=== PATIENT | male | born 1955 | race Caucasian/White ===

== ENCOUNTER 2024-05-07 08:22 | Day surgery (SDC) | payer MEDICARE, OTHER ==
[~2024-05-07] VITALS: Ht 162.6 cm; Wt 80.5 kg
[~2024-05-07 08:22] MED LIST: ASPI-1450 PO; ATOR40TA28 PO; LISI-892 PO; METF-1211 PO; METO50 PO; RIVA20TA PO; SODIUM CHLORIDE 0.9% 1,000 ML ONE
[2024-05-07] MEDS: SODIUM CHLORIDE 0.9% 1,000 ML IV ONE (09:18)
[2024-05-07 09:26] LABS: GLUCOMETER DEV NAME(LOC) SDS.; GLUCOSE,POINT OF CARE 142 MG/DL (70-110)
== END 2024-05-07 11:25 | disposition home or self-care (01) ==
LOC: SURGERY 08:22
PROVIDERS: ATTEND Internal Medicine
DX: K63.5 Polyp of colon (principal); Z53.8 Procedure and treatment not carried out for other reasons; I48.91 Unspecified atrial fibrillation; I25.2 Old myocardial infarction; I10 Essential (primary) hypertension; I25.10 Atherosclerotic heart disease of native coronary artery without angina pectoris; E11.9 Type 2 diabetes mellitus without complications; Z79.01 Long term (current) use of anticoagulants; Z79.82 Long term (current) use of aspirin; Z79.84 Long term (current) use of oral hypoglycemic drugs; Z79.899 Other long term (current) drug therapy; Z95.1 Presence of aortocoronary bypass graft; Z88.0 Allergy status to penicillin
CPT/HCPCS: 93005; 82962; J7030